=== PATIENT | female | born 1960 | race Caucasian/White ===

== ENCOUNTER → 2018-06-24 15:16 | Outpatient (REF) | payer BC, SELFPAY ==
[2018-06-24 22:36] LABS: Absolute Basophil Count 0.04 k/cumm (0.0-0.2); Absolute Eosinophil Count 0.09 k/cumm (0.0-0.7); Absolute Lymphocyte Count 1.55 k/cumm (1.2-3.4); Absolute Neutrophil Count 2.91 k/cumm (1.2-6.7); Basophils % 0.8; Eosinophils % 1.8; HCT 39.1 % (36.0-46.0); HGB 12.5 g/dL (12.0-15.5); Lymphocytes % 31.1; Mean Corpuscular Hemoglobin 29.6 pg (27.0-33.0); Mean Corpuscular Volume 92.7 fL (80-95); Mean Platelet Volume 10.9 fL (8.0-11.0); Neutrophils % 58.3; Platelet Count 259 x1000/uL (130-400); RBC 4.22 m/cumm (4.00-5.20); RBC Distribution Width 12.6 % (11.7-14.6); White Blood Cell Count 4.99 k/cumm (4.4-10.8)
[2018-06-24 22:41] LABS: ALT 24 U/L (12-78); AST 17 U/L (15-37); Albumin 3.8 g/dL (3.4-5.0); Alkaline Phosphatase 72 U/L (46-116); Anion Gap 3.8 mmol/L (3-11); BUN 12 mg/dL (7-18); Bilirubin, Total 0.4 mg/dL (0.2-1.0); C-Reactive Protein 0.13 mg/dL (0.0-0.3); CO2 27.2 mmol/L (21.0-32.0); Calcium 8.6 mg/dL (8.5-10.1); Chloride 109 mmol/L (98-107); Glucose 91 mg/dL (70-100); Potassium 3.7 mmol/L (3.5-5.1); Sodium 140 mmol/L (136-145); Total Protein 6.6 g/dL (6.4-8.2); Uric Acid 2.2 mg/dL (2.6-6.0)
[2018-06-24 23:52] LABS: ESR 13 MM/HR (0-30)
== END ==
LOC: NCHCN 15:16
PROVIDERS: PCP Family Medicine; Visit Provider Nurse Practitioner Family
DX: M79.89 Other specified soft tissue disorders (principal)
CPT/HCPCS: 80053; 85652; 84550; 85025; 86140

== ENCOUNTER 2020-06-15 00:52 | Outpatient (CLI) | payer BC, SELFPAY ==
--- NOTE | 2020-06-15 | DI.MRI_ITS ---
EXAM: MR UPPER JOINT LT WO/W CLINICAL HISTORY: MASS OF SKIN,R22.32,PAIN,FOCAL SWELLING,? LIPOMA. TECHNIQUE: Multiplanar multisequence MRI was performed. CONTRAST MATERIAL: IV Contrast: mL of Dotarem contrast administered. COMPARISON: None. FINDINGS: A marker was placed over the area of the palpable abnormality in the deltoid region. Beneath the are a marked, there is a fatty signal lesion seen within portion of the deltoid muscle, consistent with a simple lipoma. There are no solid components. It measures approximately 1.2 x 1.7 by 4.3 cm. Bones:There is no fracture or contusion pattern. A few small subchondral cysts are seen in the poste rior humeral head. The acromioclavicular joint shows mild hypertrophic changes.. There is a small a mount of fluid in the subcoracoid bursa. There is no glenohumeral joint effusion.. Rotator Cuff: The supra and infraspinatus are intact. The subscapularis and teres minor are normal. Labrum and biceps anchor: The biceps tendon is located. The anchor is well maintained. The labrum is within normal limits. 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 DATA REPOSITORY:
[2020-06-15] MEDS: Gadoterate meglumine 20 ML VIAL 15 ML IVP (08:51)
== END 2020-06-15 01:12 ==
PROVIDERS: Visit Provider Orthopaedic Surgery
DX: D17.9 Benign lipomatous neoplasm, unspecified (principal)
CPT/HCPCS: 73223